=== PATIENT | male | born 1995 | race Two or more races ===

== ENCOUNTER 2019-06-29 13:24 | Emergency (ER) | payer OTHER ==
[~2019-06-29] VITALS: Ht 177.8 cm; Wt 81.6 kg
[2019-06-29] MEDS ORDERED: EPINEPHrine HCL 1 MG/10 ML SYRG IV ONE (13:25)
[2019-06-29] MEDS ORDERED: SODIUM BICARBONATE 8.4% INJ 50ML SYRINGE IV ONE (13:25)
[2019-06-29] MEDS ORDERED: CALCIUM CHLOR(10%) 100MG/ML 10ML SYRINGE IV ONE (13:25)
[2019-06-29] MEDS ORDERED: SODIUM BICARBONATE 8.4 % INJ 50ML VIAL IV ONE (13:30)
== END 2019-06-29 17:47 | disposition expired ==
LOC: EDBD 13:24 → ER 13:24
DX: T40.5X1A Poisoning by cocaine, accidental (unintentional), initial encounter (principal); I46.8 Cardiac arrest due to other underlying condition; Y92.9 Unspecified place or not applicable
CPT/HCPCS: 92950; 99285; J0171